=== PATIENT | male | born 1965 | race Caucasian/White ===

== ENCOUNTER 2023-09-25 19:03 | Emergency (ER) | payer OTHER ==
[~2023-09-25] VITALS: Ht 180.3 cm; Wt 72.6 kg
[~2023-09-25 19:03] MED LIST: CRUTCH4 USE; HYDACE5 PO; RXHYDACE PO
[2023-09-25] MEDS ORDERED: Diphth,Pertuss(Acell),Tet Vac 0.5 ML VIAL IM ONE (20:55)
== END 2023-09-25 21:09 | disposition home or self-care (01) ==
LOC: ER 19:03
DX: S61.442A Puncture wound with foreign body of left hand, initial encounter (principal); W26.8XXA Contact with other sharp object(s), not elsewhere classified, initial encounter; W45.8XXA Other foreign body or object entering through skin, initial encounter
CPT/HCPCS: 90471; 90715; 99283-25